=== PATIENT | male | born 1965 | race Hispanic/Latino ===

== ENCOUNTER 2021-08-03 17:35 | Inpatient (IN) | payer MEDICAID ==
--- NOTE | 2021-08-04 09:42 | History and Physical Report ---
GP History & Physical - History of Present Illness Date of admission: 08/03/21 Date of Examination: 08/04/21 Reason for Admission: Danger to self, Failure of Outpatient Treatment, Severe anxiety/depression History of Present Illness: The patient was seen today. He is a 56y/o male patient who was admitted to [facility] for suicidal thoughts. During my evaluation of the patient he is a/o x 3. He is calm. He doesn't appear to be forth coming. The patient is [place] and wears a hearing aid in his right ear. When asking the patient why was he admitted, he replies "I don't know." When asking was he suicidal or homicidal, he says "I used to be suicidal but not now, maybe at first." He denies hallucinations. He says "I used to." He says "they thought I was suicidal, that's why I'm here." I asked the patient who are they and why did they think that, he replies "I don't know." I also asked the patient about any past psych history, in which he replied "I don't know what they told me." The patient says he is homeless, and his family turns him away. He verbalizes being very depressed for this reason. He says "my family keeps turning me away." He denies illicit drug use, alcohol. PAST PSYCHIATRIC HISTORY: Diagnoses: "I don't know" Suicide attempts or Self-harm behavior: Denies Prior psychiatric hospitalizations: Denies Substance Abuse history: Denies Previous psychiatric medications tried: Denies Outpatient treatment: yes PAST MEDICAL HISTORY: unknown Family Psychiatric History: None reported or documented SOCIAL HISTORY Marital Status: Single Living Arrangements: Homeless Employment Status: Unemployed Access to guns/weapons: Denies Education: History of Abuse:denies Legal History: Denies REVIEW OF SYSTEMS Constitutional: Negative for weight loss ENT: Negative for stridor Respiratory: Negative for cough or hemoptysis All other systems reviewed and are negative MENTAL STATUS EXAMINATION General Appearance and Behavior: Age appropriate, good hygiene, wearing appropriate clothes. calm, not forthcoming Cooperation: Cooperative Psychomotor Behavior: Psychomotor normal Mood: Depressed Affect and affective range: Congruent with stated mood Thought Process: Goal directed Thought Content: Reality oriented Speech: Normal Suicidal Ideation: Denies Homicidal Ideation: Denies Hallucinations: Denies Delusions: Denies Impulse Control: Limited Insight and Judgment: Limited insight and fair judgment Memory: Limited Attention: distracted Orientation: a/o x 3 Assessment (1) Major Depressive Disorder Current Visit: Yes Status: Acute Treatment Plan Patient admitted for inpatient psychiatric evaluation, medication adjustment and close monitoring The patient's behavior, mood, sleep and appetite will be closely monitored. Patient enrolled in individual and group therapeutic sessions and encouraged to attend. Patient provided with a safe and structured environment. Patient's physical health needs will be addressed by the Hospitalist. Ho spitalist Consulted Labs including CBC, CMP, Lipid profile and Hemoglobin A1C levels ordered for baseline reference Social Assessment will be completed and the Wash Tank Tender will work with patient and family to ensure a suitable and safe disposition Medication adjustment will be made as clinically indicated Start Zoloft 25mg po daily Start Trazodone 50mg po qhs Usual Wellness Buddhism/Preservation: - Start Trazodone 50 mg po QHS & 50 mg po QHS PRN between 10 PM & 2 AM for insomnia - Start Melatonin 5 mg po QHS to promote circadian rhythm The patient agreed on the treatment plan, understood the risk, benefit, alternative treatment, potential consequence of no treatment, and gave informed consent. Estimated days: 7 Post hospital care: primary care provider, psychiatric provider Case staffed with Dr. Street Legal Status: Voluntary Reaction to Hospitalization: Accepting Medications and Allergies Allergies Allergy/AdvReac Type Severity Reaction Status Date / Time No Known Drug Allergies Allergy Unknown Verified 08/04/21 01:43 Home Medications Medication Instructions Recorded Confirmed Last Taken Type No Known Home Medications [No 08/04/21 08/04/21 Unknown History Reported Home Medications] Results - Results Labs/Vitals: Last Vital Signs Temp 97.7 F 08/04/21 01:10 Pulse 63 08/04/21 01:10 Resp 16 08/04/21 01:10 BP 126/75 08/04/21 01:10 Pulse Ox 95 08/04/21 01:10 Physical Examination - Constitutional Vitals: Vital Signs Temp Pulse Resp BP Pulse Ox 97.7 F 63 16 126/75 95 08/04/21 01:10 08/04/21 01:10 08/04/21 01:10 08/04/21 01:10 08/04/21 01:10 Temperature -Last 24 Hours Temperature 97.7 F Mental Status Exam - Vital signs Last Vital Signs Temp 97.7 F 08/04/21 01:10 Pulse 63 08/04/21 01:10 Resp 16 08/04/21 01:10 BP 126/75 08/04/21 01:10 Pulse Ox 95 08/04/21 01:10 Physician Certification - Certification Statement Physician Certification Statement: This is an acknowledgement statement that IVETH JOSEPH is a 56 year old M who requires inpatient psychiatric admission for treatment which could reasonably be expected to improve the patient's condition for Estimated period of time patient will need to remain in the hospital: [ ] Plan for post-hospital care: [ ]
[2021-08-04] MEDS: SERTRALINE 25 MG TAB PO SCH (11:04)
[2021-08-04] MEDS: traZODone 50 MG TAB PO SCH (21:24)
[2021-08-05] MEDS: SERTRALINE 25 MG TAB PO SCH (10:04)
--- NOTE | 2021-08-05 10:18 | Progress Note ---
Subjective Date of service: 08/05/21 Principal diagnosis: MDD Subjective Comment: The patient was seen today. He says he's doing fine, but he appears irritable. He says he slept okay. The patient denies SI/HI or hallucinations of any kind. The nursing staff says the patient was agitated yesterday. REVIEW OF SYSTEMS Constitutional: Negative for weight loss ENT: Negative for stridor Respiratory: Negative for cough or hemoptysis All other systems reviewed and are negative MENTAL STATUS EXAMINATION General Appearance and Behavior: Age appropriate, good hygiene, wearing appropriate clothes. calm, not forthcoming Cooperation: Cooperative Psychomotor Behavior: Psychomotor normal Mood: Depressed Affect and affective range: Congruent with stated mood Thought Process: Goal directed Thought Content: Reality oriented Speech: Normal Suicidal Ideation: Denies Homicidal Ideation: Denies Hallucinations: Denies Delusions: Denies Impulse Control: Limited Insight and Judgment: Limited insight and fair judgment Memory: Limited Attention: distracted Orientation: a/o x 3 Assessment (1) Major Depressive Disorder Current Visit: Yes Status: Acute Treatment Plan Patient admitted for inpatient psychiatric evaluation, medication adjustment and close monitoring The patient's behavior, mood, sleep and appetite will be closely monitored. Patient enrolled in individual and group therapeutic sessions and encouraged to attend. Patient provided with a safe and structured environment. Patient's physical health needs will be addressed by the Hospitalist. Hospitalist Consulted Labs including CBC, CMP, Lipid profile and Hemoglobin A1C levels ordered for baseline reference Social Assessment will be completed and the Psychiatric Security Nurse will work with patient and family to ensure a suitable and safe disposition Medication adjustment will be made as clinically indicated Start Zoloft 25mg po daily yesterday Start Trazodone 50mg po qhs yesterday No changes today Usual Wellness Samaritan/Preservation: - Start Trazodone 50 mg po QHS & 50 mg po QHS PRN between 10 PM & 2 AM for insomnia - Start Melatonin 5 mg po QHS to promote circadian rhythm The patient agreed on the treatment plan, understood the risk, benefit, alternative treatment, potential consequence of no treatment, and gave informed consent. Estimated days: 7 Post hospital care: primary care provider, psychiatric provider Case staffed with Dr. Street Medications and Allergies Allergies Allergy/AdvReac Type Severity Reaction Status Date / Time No Known Drug Allergies Allergy Unknown Verified 08/04/21 01:43 Home Medications Medication Instructions Recorded Confirmed Last Taken Type No Known Home Medications [No 08/04/21 08/04/21 Unknown History Reported Home Medications] Active Meds: Active Medications Sertraline HCl (Sertraline 25 Mg Tab) 25 mg PO QDAY [facility] Last Admin: 08/05/21 10:04 Dose: 25 mg Trazodone HCl (Trazodone 50 Mg Tab) 50 mg PO QHS [facility] Last Admin: 08/04/21 21:24 Dose: 50 mg Results - Results Labs/Vitals: Last Vital Signs Temp 97.6 F 08/04/21 19:33 Pulse 54 L 08/04/21 19:33 Resp 17 08/04/21 19:33 BP 137/69 08/04/21 19:33 Pulse Ox 95 08/04/21 19:33
--- NOTE | 2021-08-05 11:57 | Consultation ---
History of Present Illness - Reason for Consult Consult date: 08/05/21 Medical management - History of Present Illness The patient is a 56M with PMH of prior suicide attempts and suicidal ideation who presents for suicidal ideation. The patient is not forthcoming with information. Medicine was consulted for medical management. Past History Past Medical History: other (suicide attempts; suicidal ideation) Past Surgical History: No surgical history Social history: no significant social history, full code Medications and Allergies Allergies Allergy/AdvReac Type Severity Reaction Status Date / Time No Known Drug Allergies Allergy Unknown Verified 08/04/21 01:43 Home Medications Medication Instructions Recorded Confirmed Last Taken Type No Known Home Medications [No 08/04/21 08/04/21 Unknown History Reported Home Medications] Active Meds: Active Medications Sertraline HCl (Sertraline 25 Mg Tab) 25 mg PO QDAY [facility] Last Admin: 08/05/21 10:04 Dose: 25 mg Trazodone HCl (Trazodone 50 Mg Tab) 50 mg PO QHS [facility] Last Admin: 08/04/21 21:24 Dose: 50 mg Review of Systems ROS unobtainable: due to mental status (patient is not forthcoming with information) Exam - Constitutional Vitals: Temp Pulse Resp BP Pulse Ox 97.6 F 54 L 17 137/69 95 08/04/21 19:33 08/04/21 19:33 08/04/21 19:33 08/04/21 19:33 08/04/21 19:33 General appearance: Present: no acute distress, well-nourished - EENT Eyes: Present: PERRL, EOM intact ENT: hearing intact (hearing aids), clear oral mucosa - Neck Neck: Present: supple, normal ROM - Respiratory Respiratory effort: normal Respiratory: bilateral: CTA - Cardiovascular Rhythm: regular Heart Sounds: Present: S1 & S2 - Extremities Extremities: no ischemia, pulses intact, pulses symmetrical, No edema, normal color, Full ROM Peripheral Pulses: within normal limits - Abdominal General gastrointestinal: Present: soft, non-tender, non-distended, normal bowel sounds Male genitourinary: Present: deferred - Rectal Rectal Exam: deferred - Integumentary Integumentary: Present: clear, warm - Musculoskeletal Musculoskeletal: strength equal bilaterally - Psychiatric Psychiatric: other (flat affect) - Neurologic Neurologic: CNII-XII intact, moves all extremities - Allied Health Allied health notes reviewed: nursing Assessment and Plan The patient is a 56M with PMH of prior suicide attempts and suicidal ideation who presents for suicidal ideation. The patient is not forthcoming with information. Medicine was consulted for medical management. #Suicidal ideation - management per Psychiatry #Healthcare maintenance - Ordering CMP, CBC, lipid profile, hemoglobin A1c, TSH, and free T4. #Obesity #Weight loss counseling #Exercise counseling - BMI 30.1 - Counseled patient on the importance of weight loss, incorporating exercise, and dietary changes (lean meats, fresh fruits and vegetables, and water intake). Patient expresses understanding. - Time: +10 min #Advanced care planning -Disease education conducted, care plan discussed, diagnoses discussed, prognosis discussed, and patient acknowledges understanding with care plan -Time: +30 min Thank you for this interesting consult. Medicine will be signing off at this time. Please feel free to reach out should any questions arise.
[2021-08-05] MEDS: traZODone 50 MG TAB PO SCH (21:15)
[2021-08-06] MEDS: SERTRALINE 25 MG TAB PO SCH (09:00)
--- NOTE | 2021-08-06 09:30 | Progress Note ---
Subjective Date of service: 08/06/21 Principal diagnosis: MDD Subjective Comment: The patient was seen today. The patient is irritable. He says he is doing okay. The patient denies SI/HI, but doesn't appear to be upfront. He denies telling anyone he was suicidal. He also denies having a knife against his wrist. Will continue to treat and monitor the patient to ensure his safety. He says he did not sleep well. REVIEW OF SYSTEMS Constitutional: Negative for weight loss ENT: Negative for stridor Respiratory: Negative for cough or hemoptysis All other systems reviewed and are negative MENTAL STATUS EXAMINATION General Appearance and Behavior: Age appropriate, good hygiene, wearing appropriate clothes. calm, not forthcoming Cooperation: Cooperative Psychomotor Behavior: Psychomotor normal Mood: Depressed Affect and affective range: Congruent with stated mood Thought Process: Goal directed Thought Content: Reality oriented Speech: Normal Suicidal Ideation: Denies Homicidal Ideation: Denies Hallucinations: Denies Delusions: Denies Impulse Control: Limited Insight and Judgment: Limited insight and fair judgment Memory: Limited Attention: distracted Orientation: a/o x 3 Assessment (1) Major Depressive Disorder Current Visit: Yes Status: Acute Treatment Plan Patient admitted for inpatient psychiatric evaluation, medication adjustment and close monitoring The patient's behavior, mood, sleep and appetite will be closely monitored. Patient enrolled in individual and group therapeutic sessions and encouraged to attend. Patient provided with a safe and structured environment. Patient's physical health needs will be addressed by the Hospitalist. Hospitalist Consulted Labs including CBC, CMP, Lipid profile and Hemoglobin A1C levels ordered for baseline reference Social Assessment will be completed and the Humanities Coordinator will work with patient and family to ensure a suitable and safe disposition Medication adjustment will be made as clinically indicated Zoloft 25mg po daily yesterday Increase Trazodone 75mg po qhs yesterday Usual Wellness Mormon/Preservation: - Start Trazodone 50 mg po QHS & 50 mg po QHS PRN between 10 PM & 2 AM for insomnia - Start Melatonin 5 mg po QHS to promote circadian rhythm The patient agreed on the treatment plan, understood the risk, benefit, alternative treatment, potential consequence of no treatment, and gave informed consent. Estimated days: 7 Post hospital care: primary care provider, psychiatric provider Case staffed with Dr. Street Medications and Allergies Allergies Allergy/AdvReac Type Severity Reaction Status Date / Time No Known Drug Allergies Allergy Unknown Verified 08/04/21 01:43 Home Medications Medication Instructions Recorded Confirmed Last Taken Type No Known Home Medications [No 08/04/21 08/04/21 Unknown History Reported Home Medications] Active Meds: Active Medications Sertraline HCl (Sertraline 25 Mg Tab) 25 mg PO QDAY [facility] Last Admin: 08/06/21 09:00 Dose: 25 mg Trazodone HCl (Trazodone 50 Mg Tab) 50 mg PO QHS [facility] Last Admin: 08/05/21 21:15 Dose: 50 mg Results - Results Labs/Vitals: Last Vital Signs Temp 97.4 F L 08/06/21 08:33 Pulse 54 L 08/06/21 08:33 Resp 18 08/06/21 08:33 BP 132/62 08/06/21 08:33 Pulse Ox 95 08/06/21 08:33
[2021-08-06 14:48] LABS: Basophils # (Auto) 0.2 K/mm3 (0.0-0.1); Basophils % (Auto) 2.7 % (0.0-1.8); Eosinophils # (Auto) 0.4 K/mm3 (0.0-0.4); Eosinophils % (Auto) 4.6 % (0.0-4.3); Hematocrit 45.6 % (35.5-45.6); Hemoglobin 15.1 gm/dl (11.8-15.2); Lymphocytes # (Auto) 3.2 K/mm3 (1.2-5.4); Lymphocytes % (Auto) 39.6 % (13.4-35.0); Mean Corpuscular HGB Conc 33 % (32-34); Mean Corpuscular Volume 92 fl (84-94); Monocytes # (Auto) 0.9 K/mm3 (0.0-0.8); Monocytes % (Auto) 11.4 % (0.0-7.3); Platelet Count 257 K/mm3 (140-440); Red Blood Count 4.93 M/mm3 (3.65-5.03); Red Cell Distribution Width 14.1 % (13.2-15.2)
[2021-08-06 15:05] LABS: Alanine Aminotransferase 15 units/L (7-56); Albumin 4.1 g/dL (3.9-5); BUN/Creatinine Ratio 15; Blood Urea Nitrogen 15 mg/dL (9-20); Calcium 9.3 mg/dL (8.4-10.2)
[2021-08-06 15:06] LABS: Chol/HDL Ratio 5.14 %; HDL Cholesterol 27 mg/dL (40-59); Hemolysis Index 10; LDL Cholesterol,Direct TNR mg/dL (50-130)
[2021-08-06] MEDS: traZODone 50 MG TAB PO SCH (21:07)
[2021-08-07] MEDS: SERTRALINE 25 MG TAB PO SCH (09:26)
--- NOTE | 2021-08-07 09:53 | Progress Note ---
Subjective Date of service: 08/07/21 Principal diagnosis: MDD Subjective Comment: The patient was seen today. He is upset and states he's ready to go. He says another patient is going to buy him a hotel. He says "so if she's going I can go with her." I told him, we would not be sending him with another patient. The patient becomes upset and says "you can't keep someone from purchasing me a room." I explain to the patient we would set up group home placement. He says "I'm not going to a group home. That other patient is buying me a hotel." The patient denies SI/HI or hallucinations of any kind. The patient will discharge tomorrow once his outpatient resources are in place and he has an uneventful night. REVIEW OF SYSTEMS Constitutional: Negative for weight loss ENT: Negative for stridor Respiratory: Negative for cough or hemoptysis All other systems reviewed and are negative MENTAL STATUS EXAMINATION General Appearance and Behavior: Age appropriate, good hygiene, wearing appropriate clothes. calm, not forthcoming Cooperation: Cooperative Psychomotor Behavior: Psychomotor normal Mood: Depressed Affect and affective range: Congruent with stated mood Thought Process: Goal directed Thought Content: Reality oriented Speech: Normal Suicidal Ideation: Denies Homicidal Ideation: Denies Hallucinations: Denies Delusions: Denies Impulse Control: Limited Insight and Judgment: Limited insight and fair judgment Memory: Limited Attention: distracted Orientation: a/o x 3 Assessment (1) Major Depressive Disorder Current Visit: Yes Status: Acute Treatment Plan Patient admitted for inpatient psychiatric evaluation, medication adjustment and close monitoring The patient's behavior, mood, sleep and appetite will be closely monitored. Patient enrolled in individual and group therapeutic sessions and encouraged to attend. Patient provided with a safe and structured environment. Patient's physical health needs will be addressed by the Hospitalist. Hospitalist Consulted Labs including CBC, CMP, Lipid profile and Hemoglobin A1C levels ordered for baseline reference Social Assessment will be completed and the Tobacco Classer will work with patient and family to ensure a suitable and safe disposition Medication adjustment will be made as clinically indicated No changes made today Usual Wellness Mandaeism/Preservation: - Start Trazodone 50 mg po QHS & 50 mg po QHS PRN between 10 PM & 2 AM for insomnia - Start Melatonin 5 mg po QHS to promote circadian rhythm The patient agreed on the treatment plan, understood the risk, benefit, alternative treatment, potential consequence of no treatment, and gave informed consent. Estimated days: 2 Post hospital care: primary care provider, psychiatric provider Case staffed with Dr. Street Medications and Allergies Allergies Allergy/AdvReac Type Severity Reaction Status Date / Time No Known Drug Allergies Allergy Unknown Verified 08/04/21 01:43 Home Medications Medication Instructions Recorded Confirmed Last Taken Type No Known Home Medications [No 08/04/21 08/04/21 Unknown History Reported Home Medications] Active Meds: Active Medications Sertraline HCl (Sertraline 25 Mg Tab) 25 mg PO QDAY [facility] Last Admin: 08/07/21 09:26 Dose: 25 mg Trazodone HCl (Trazodone 50 Mg Tab) 75 mg PO QHS [facility] Last Admin: 08/06/21 21:07 Dose: 75 mg Results - Results Labs/Vitals: Laboratory Last Values WBC 8.0 K/mm3 (4.5-11.0) 08/06/21 14:26 RBC 4.93 M/mm3 (3.65-5.03) 08/06/21 14:26 Hgb 15.1 gm/dl (11.8-15.2) 08/06/21 14:26 Hct 45.6 % (35.5-45.6) 08/06/21 14:26 MCV 92 fl (84-94) 08/06/21 14:26 MCH 31 pg (28-32) 08/06/21 14:26 MCHC 33 % (32-34) 08/06/21 14:26 RDW 14.1 % (13.2-15.2) 08/06/21 14:26 Plt Count 257 K/mm3 (140-440) 08/06/21 14:26 Lymph % (Auto) 39.6 % (13.4-35.0) H 08/06/21 14:26 [place] % (Auto) 11.4 % (0.0-7.3) H 08/06/21 14:26 Eos % (Auto) 4.6 % (0.0-4.3) H 08/06/21 14:26 Baso % (Auto) 2.7 % (0.0-1.8) H 08/06/21 14:26 Lymph # (Auto) 3.2 K/mm3 (1.2-5.4) 08/06/21 14:26 [place] # (Auto) 0.9 K/mm3 (0.0-0.8) H 08/06/21 14:26 Eos # (Auto) 0.4 K/mm3 (0.0-0.4) 08/06/21 14:26 Baso # (Auto) 0.2 K/mm3 (0.0-0.1) H 08/06/21 14:26 Seg Neutrophils % 41.7 % (40.0-70.0) 08/06/21 14:26 Seg Neutrophils # 3.3 K/mm3 (1.8-7.7) 08/06/21 14:26 Sodium 139 mmol/L (137-145) 08/06/21 14:26 Potassium 4.3 mmol/L (3.6-5.0) 08/06/21 14:26 Chloride 104.1 mmol/L (98-107) 08/06/21 14:26 Carbon Dioxide 24 mmol/L (22-30) 08/06/21 14:26 Anion Gap 15 mmol/L 08/06/21 14:26 BUN 15 mg/dL (9-20) 08/06/21 14:26 Creatinine 1.0 mg/dL (0.8-1.3) 08/06/21 14:26 Estimated GFR > 60 ml/min 08/06/21 14:26 BUN/Creatinine Ratio 15 % 08/06/21 14:26 Glucose 112 mg/dL (75-100) H 08/06/21 14:26 Hemoglobin A1c 6.0 % (4-6) 08/06/21 14:26 Calcium 9.3 mg/dL (8.4-10.2) 08/06/21 14:26 Total Bilirubin < 0.20 mg/dL (0.1-1.2) 08/06/21 14:26 AST 16 units/L (5-40) 08/06/21 14:26 ALT 15 units/L (7-56) 08/06/21 14:26 Alkaline Phosphatase 101 units/L (35-129) 08/06/21 14:26 Total Protein 6.9 g/dL (6.3-8.2) 08/06/21 14:26 Albumin 4.1 g/dL (3.9-5) 08/06/21 14:26 Albumin/Globulin Ratio 1.5 % 08/06/21 14:26 Triglycerides 420 mg/dL (2-149) H 08/06/21 14:26 Cholesterol 139 mg/dL (50-199) 08/06/21 14:26 LDL Cholesterol Direct TNR 08/06/21 14:26 HDL Cholesterol 27 mg/dL (40-59) L 08/06/21 14:26 Cholesterol/HDL Ratio 5.14 % 08/06/21 14:26 TSH 0.951 mlU/mL (0.270-4.200) 08/06/21 14:26 Free T4 0.96 ng/dL (0.76-1.46) 08/06/21 14:26 Last Vital Signs Temp 98.3 F 08/07/21 07:42 Pulse 64 08/07/21 07:42 Resp 16 08/07/21 07:42 BP 124/63 08/07/21 07:42 Pulse Ox 94 08/07/21 07:42
[2021-08-07 20:01] VITALS: BP 126/64
[2021-08-07] MEDS: traZODone 50 MG TAB PO SCH (21:24)
[2021-08-08] MEDS: SERTRALINE 25 MG TAB PO SCH (09:09)
--- NOTE | 2021-08-08 10:34 | Discharge Summary ---
Providers - Providers Date of Admission: 08/04/21 02:46 Date of discharge: 08/08/21 Attending physician: SWETA SANDS MD 08/04/21 02:00 Consult to Physician [CONS] Routine Comment: Consulting Provider: RASHAAD MENJIVAR Physician Instructions: Reason For Exam: New admission consult Primary care physician: [facility] [employer] Hospitalization Reason for admission: SI Admitting Diagnosis: F33.9 - MAJOR DEPRESSIVE DISORDER, RECURRENT, UNSPECIFIED Condition: Stable Hospital course: The patient was provided inpatient psychiatric treatment with safe and supportive environment, group/individual therapy, psychiatric medication, medication adjustment, adverse effect monitor, medical evaluation, medical treatment, social service assessment, social support meeting, placement assessment and psycho-education. The patients mood, cognition, behavior, motivation, compliance to treatment and appreciation on family/social support are improved and stabilized. At the time of discharge, the patient had no suicidal ideas, no homicidal ideas, no aggressive thoughts, no endangering behavior and no debilitating adverse effects. The patient agreed on the treatment plan, understood the risk, benefit, alternative treatment, potential consequence of no treatment, and gave informed consent. Disposition: HOME / SELF CARE / HOMELESS Time spent for discharge: 35 Allergies/Adverse Reactions: Allergies No Known Drug Allergies Allergy (Verified 08/04/21 01:43) Unknown Vital Signs: Last Vital Signs Temp 98.7 F 08/07/21 19:01 Pulse 51 L 08/07/21 19:01 Resp 17 08/07/21 19:01 BP 126/64 08/07/21 19:01 Pulse Ox 92 08/07/21 19:01 Last Lab: Laboratory Last Values WBC 8.0 K/mm3 (4.5-11.0) 08/06/21 14:26 RBC 4.93 M/mm3 (3.65-5.03) 08/06/21 14:26 Hgb 15.1 gm/dl (11.8-15.2) 08/06/21 14:26 Hct 45.6 % (35.5-45.6) 08/06/21 14:26 MCV 92 fl (84-94) 08/06/21 14:26 MCH 31 pg (28-32) 08/06/21 14:26 MCHC 33 % (32-34) 08/06/21 14:26 RDW 14.1 % (13.2-15.2) 08/06/21 14:26 Plt Count 257 K/mm3 (140-440) 08/06/21 14:26 Lymph % (Auto) 39.6 % (13.4-35.0) H 08/06/21 14:26 [place] % (Auto) 11.4 % (0.0-7.3) H 08/06/21 14:26 Eos % (Auto) 4.6 % (0.0-4.3) H 08/06/21 14:26 Baso % (Auto) 2.7 % (0.0-1.8) H 08/06/21 14:26 Lymph # (Auto) 3.2 K/mm3 (1.2-5.4) 08/06/21 14:26 [place] # (Auto) 0.9 K/mm3 (0.0-0.8) H 08/06/21 14:26 Eos # (Auto) 0.4 K/mm3 (0.0-0.4) 08/06/21 14:26 Baso # (Auto) 0.2 K/mm3 (0.0-0.1) H 08/06/21 14:26 Seg Neutrophils % 41.7 % (40.0-70.0) 08/06/21 14:26 Seg Neutrophils # 3.3 K/mm3 (1.8-7.7) 08/06/21 14:26 Sodium 139 mmol/L (137-145) 08/06/21 14:26 Potassium 4.3 mmol/L (3.6-5.0) 08/06/21 14:26 Chloride 104.1 mmol/L (98-107) 08/06/21 14:26 Carbon Dioxide 24 mmol/L (22-30) 08/06/21 14:26 Anion Gap 15 mmol/L 08/06/21 14:26 BUN 15 mg/dL (9-20) 08/06/21 14:26 Creatinine 1.0 mg/dL (0.8-1.3) 08/06/21 14:26 Estimated GFR > 60 ml/min 08/06/21 14:26 BUN/Creatinine Ratio 15 % 08/06/21 14:26 Glucose 112 mg/dL (75-100) H 08/06/21 14:26 Hemoglobin A1c 6.0 % (4-6) 08/06/21 14:26 Calcium 9.3 mg/dL (8.4-10.2) 08/06/21 14:26 Total Bilirubin < 0.20 mg/dL (0.1-1.2) 08/06/21 14:26 AST 16 units/L (5-40) 08/06/21 14:26 ALT 15 units/L (7-56) 08/06/21 14:26 Alkaline Phosphatase 101 units/L (35-129) 08/06/21 14:26 Total Protein 6.9 g/dL (6.3-8.2) 08/06/21 14:26 Albumin 4.1 g/dL (3.9-5) 08/06/21 14:26 Albumin/Globulin Ratio 1.5 % 08/06/21 14:26 Triglycerides 420 mg/dL (2-149) H 08/06/21 14:26 Cholesterol 139 mg/dL (50-199) 08/06/21 14:26 LDL Cholesterol Direct TNR 08/06/21 14:26 HDL Cholesterol 27 mg/dL (40-59) L 08/06/21 14:26 Cholesterol/HDL Ratio 5.14 % 08/06/21 14:26 TSH 0.951 mlU/mL (0.270-4.200) 08/06/21 14:26 Free T4 0.96 ng/dL (0.76-1.46) 08/06/21 14:26 Core Measure Documentation - Palliative Care Palliative Care/ Comfort Measures: Not Applicable - Core Measures Any of the following diagnoses?: none Exam - Constitutional Vitals: Temp Pulse Resp BP Pulse Ox 98.7 F 51 L 17 126/64 92 08/07/21 19:01 08/07/21 19:01 08/07/21 19:01 08/07/21 19:01 08/07/21 19:01 General appearance: Present: no acute distress - EENT Eyes: Present: PERRL, EOM intact ENT: hearing intact, clear oral mucosa - Neck Neck: Present: supple, normal ROM - Respiratory Respiratory effort: normal Plan Activity: advance as tolerated Weight Bearing Status: Weight Bear as Tolerated Care Plan Goals: Maintain good and stable mental health Plan of Treatment: The patient should be compliant with medications, not to use drugs and not to drink alcohol. The patient understands that if suicidal ideas, homicidal ideas, or any endangering thoughts/behavior arise, they should immediately seek for emergent assistance including but not limited to crisis hot line and emergency room. Follow up with outpatient Psychiatrist and PCP within 7 - 14 days of discharge. Assessment: MDD Follow up with: PRIMARY CARE,MD [Primary Care Provider] - 7 Days Prescriptions: traZODone [Desyrel] 75 mg PO QHS #30 tablet Sertraline [Zoloft] 25 mg PO QDAY #30 tablet
== END 2021-08-08 15:15 | disposition home or self-care (01) | DRG 885 ==
LOC: 3A 17:35 → UNDOADMIN 17:35 → 5A 08-04 02:46
PROVIDERS: ADMIT Psychiatry & Neurology Psychiatry; ATTEND Psychiatry & Neurology Psychiatry
DX: F32.2 Major depressive disorder, single episode, severe without psychotic features (principal); R45.851 Suicidal ideations; E66.9 Obesity, unspecified; Z68.30 Body mass index [BMI] 30.0-30.9, adult; Z71.3 Dietary counseling and surveillance
CPT/HCPCS: 36415; 80053; 80061; 83036; 84439; 84443; 85025; G0378